=== PATIENT | male | born 1955 | race Caucasian/White ===

== ENCOUNTER 2023-10-24 20:38 | Emergency (ER) | payer OTHER ==
[2023-10-24] MEDS ORDERED: Sodium Chloride 0.9% 100 ML ONE (21:58)
[2023-10-24] MEDS ORDERED: cefTRIAXone (ROCEPHIN) 1 GM VIAL ONE (21:58)
[2023-10-24 22:07] LABS: #Basophils 0.06 10x3/uL (0.0-0.2); %Basophils 0.6 % (0.0-1.0); %Eosinophils 2.7 % (0.0-10.0); %Lymphocytes 23.5 % (21.0-51.0); %Monocytes 7.7 % (0.0-10.0); %Neutrophils 65.3 % (42.0-75.0); Hematocrit 38.3 % (42.0-52.0); Hemoglobin 13.2 g/dL (14.0-18.0); Mean Corpuscular HGB CONC 34.5 g/dL (32.0-36.0); Mean Corpuscular Hemoglobin 31.1 pg (27.0-31.0); Mean Corpuscular Volume 90.3 fL (78.0-98.0); Mean Platelet Volume 10.8 fL (7.4-10.4); Platelet Count 209 10x3/uL (130-400); RBC Distribution Width 11.9 % (11.5-14.5); Red Blood Cell (RBC) Count 4.24 mill/uL (4.70-6.10)
[2023-10-24 22:30] LABS: Anion Gap 16 mmol/L (10-20); BUN (Urea Nitrogen) 10 mg/dL (8.4-25.7); Carbon Dioxide 24 mmol/L (23-31); Chloride 101 mmol/L (98-107); Potassium 3.3 mmol/L (3.5-5.1); Sodium 138 mmol/L (136-145)
[2023-10-24 22:31] LABS: Calc. Creatinine Clearance 0 mL/min (70-130); Calcium 10.1 mg/dL (7.6-10.4); Glucose 107 mg/dL (80-115)
[2023-10-24 22:32] LABS: Estimated GFR 100
== END 2023-10-24 23:12 ==
LOC: EEVIPCON 20:38 → ERS 20:38
DX: N13.8 Other obstructive and reflux uropathy (principal); I10 Essential (primary) hypertension
CPT/HCPCS: 36415; 80048; 85025; 96365; J0696